=== PATIENT | male | born 1985 | race Caucasian/White ===

== ENCOUNTER 2021-03-13 11:37 | Emergency (ER) | payer OTHER ==
[2021-03-13] MEDS ORDERED: HYDROCODON-ACE1 EAC5 PO (14:47)
== END 2021-03-13 16:22 | disposition home or self-care (01) ==
LOC: FER 11:37
DX: S82.51XA Displaced fracture of medial malleolus of right tibia, initial encounter for closed fracture (principal); S82.831A Other fracture of upper and lower end of right fibula, initial encounter for closed fracture; Z98.890 Other specified postprocedural states; Z88.1 Allergy status to other antibiotic agents; Z88.8 Allergy status to other drugs, medicaments and biological substances; W11.XXXA Fall on and from ladder, initial encounter; Y92.009 Unspecified place in unspecified non-institutional (private) residence as the place of occurrence of the external cause
CPT/HCPCS: 73590; 73600; 73610; 96374; 96375; 96376; J1170; J2405